=== PATIENT | female | born 1990 | race Asian ===

== ENCOUNTER 2019-04-04 13:49 | Emergency (ER) | payer MEDICAID ==
[2019-04-04 14:08] LABS: Influenza B Molecular POSITIVE (Negative)
[2019-04-04 14:31] VITALS: BP 112/77
--- NOTE | 2019-04-04 14:51 | ED ---
Influenza-Like Illness - HPI Summary HPI Summary: This patient is a 28-year-old 11 week female presenting to the ED with influenza-like symptoms. Patient states she has had a fever at home of approximately 100.5, sweats and chills as well as cough and congestion. She states when she has her cough, she is also endorsing some bilateral ear pain. She denies any nausea, vomiting, diarrhea. She denies any abdominal pain. She states she is otherwise healthy and takes no medications. Patient has a cough, but this is without production. - History of Current Complaint Chief Complaint: EDFluSymptoms Time Seen by Provider: 04/04/19 14:09 Hx Obtained From: Patient Onset/Duration: Sudden Onset Severity: Moderate Associated Signs & Symptoms: Fever, T Max, F/C, Myalgia, Cough, Sore Throat Related Hx: Possible Flu/Infectious Exposure - Allergy/Home Medications Allergies/Adverse Reactions: Allergies Allergy/AdvReac Type Severity Reaction Status Date / Time No Known Allergies Allergy Verified 04/04/19 13:54 PMH/Surg Hx/FS Hx/Imm Hx Previously Healthy: Yes - Immunization History Hx Pertussis Vaccination: No Immunizations Up to Date: Yes Infectious Disease History: No Infectious Disease History: Denies: Traveled Outside the [place] in Last 30 Days - Social History Occupation: Student Lives: With Family Alcohol Use: None Hx Substance Use: No Substance Use Type: Reports: None Hx Tobacco Use: No Smoking Status (MU): Never Smoked Tobacco Review of Systems Negative: Fever, Chills, Fatigue, Skin Diaphoresis Positive: Sore Throat, Ear Ache, Nasal Discharge Negative: Palpitations, Chest Pain Positive: Cough. Negative: Shortness Of Breath Negative: Abdominal Pain, Vomiting, Diarrhea, Nausea Genitourinary: Negative Positive: no symptoms reported, see HPI Negative: Arthralgia, Myalgia Neurological: Negative All Other Systems Reviewed And Are Negative: Yes Physical Exam Triage Information Reviewed: Yes Vital Signs On Initial Exam: Initial Vitals Temp Pulse Resp BP Pulse Ox 99.9 F 89 19 113/81 100 04/04/19 13:51 04/04/19 13:51 04/04/19 13:51 04/04/19 13:51 04/04/19 13:51 Vital Signs Reviewed: Yes Appearance: Positive: Well-Appearing, Well-Nourished Skin: Positive: Warm, Skin Color Reflects Adequate Perfusion Head/Face: Positive: Normal Head/Face Inspection Eyes: Positive: EOMI, GARRY, Conjunctiva Clear ENT: Positive: Nasal congestion, Nasal drainage, Sinus tenderness. Negative: Tonsillar swelling, Tonsillar exudate, Hoarse voice, Dental tenderness Neck: Positive: Supple, No Lymphadenopathy Respiratory/Lung Sounds: Positive: Clear to Auscultation, Breath Sounds Present Cardiovascular: Positive: RRR, Pulses are Symmetrical in both Upper and Lower Extremities Musculoskeletal: Positive: Strength/ROM Intact Neurological: Positive: Speech Normal Psychiatric: Positive: Affect/Mood Appropriate AVPU Assessment: Alert Procedures - Sedation Patient Received Moderate/Deep Sedation with Procedure: No Diagnostics - Vital Signs Vital Signs Temp Pulse Resp BP Pulse Ox 04/04/19 14:30 100.4 F 97 19 112/77 99 04/04/19 13:51 99.9 F 89 19 113/81 100 - Laboratory Lab Results: Lab Results 04/04/19 Range/Units 13:55 Influenza A (Rapid) Not Reportable Influenza B (Rapid) Positive A (Negative) Lab Statement: Any lab studies that have been ordered have been reviewed, and results considered in the medical decision making process. Flu Symptom Course/Dx - Course Course Of Treatment: Patient's evaluated for influenza-like symptoms. On arrival into the ED, patient's temp is 99.9, heart rate 89. Patient appears well nondiaphoretic and nontoxic appearing. Lungs CTA, RRR. No abdominal tenderness throughout. No pharyngeal erythema. No cervical LAD or maxillary sinus tenderness. Patient has influenza B-positive. She will be treated with Tamiflu 75 mg twice a day 5 days per protocol. - Diagnoses Differential Diagnosis/HQI/PQRI: Positive: Influenza, Upper Respiratory Infection Provider Diagnoses: Influenza B Discharge ED - Sign-Out/Discharge Documenting (check all that apply): Patient Departure - Discharge Plan Condition: Stable Disposition: HOME Prescriptions: Oseltamivir CAP* [Tamiflu CAP*] 75 mg PO BID #10 cap Patient Education Materials: Influenza (ED) Forms: *School Release Referrals: No Primary Care Phys,NOPCP [Primary Care Provider] - Additional Instructions: Tylenol 650mg four times daily Tamiflu twice daliy for 5 days - you can start this medication immediately Out of classes/work for 4 days you are able to return on Friday Note is given for work Robitussin over the counter for any cough Drink plenty of fluids Rest as much as possible Humidifier in the home may help Follow up with OBGYN - Billing Disposition and Condition Condition: STABLE Disposition: Home
== END 2019-04-04 14:41 | disposition home or self-care (01) ==
LOC: ED 13:49
DX: O26.891 Other specified pregnancy related conditions, first trimester (principal); J10.1 Influenza due to other identified influenza virus with other respiratory manifestations; Z3A.11 11 weeks gestation of pregnancy
CPT/HCPCS: 99282

== ENCOUNTER 2019-10-25 01:03 | Inpatient (IN) ==
[2019-10-25] MEDS ORDERED: Lactated Ringers 1000 ml BAG 1,000 ML IV ONE ×2 (05:40→09:58)
[2019-10-25] MEDS ORDERED: Lactated Ringers 1000 ml BAG 1,000 ML IV SCH ×3 (06:00→19:00)
[2019-10-25 06:20] LABS: ABS Lymphocytes 1.3 10^3/ul (1.0-4.8); ABS Monocytes 0.6 10^3/ul (0-0.8); ABS Neutrophils 7.7 10^3/ul (1.5-7.7); Eosinophil % 0.1 %; Hematocrit 39 % (35-47); Hemoglobin 13.7 g/dL (12.0-16.0); Lymphocyte % 13.4 %; Mean Corpuscular HGB Conc 35 g/dL (31-36); Mean Corpuscular Hemoglobin 35 pg (27-31); Mean Corpuscular Volume 100 fL (80-97); Mean Platelet Volume 9.1 fL (7.4-10.4); Platelet Count 169 10^3/uL (150-450); Red Blood Count 3.88 10^6 /uL (3.70-4.87); Red Cell Distribution Width 14 % (10-15); White Blood Count 9.5 10^3/uL (3.5-10.8)
[2019-10-25 08:21] LABS: Urine Benzodiazepine Screen None Detected (None Detect); Urine Cannabinoids Screen None Detected (None Detect); Urine Opiates Screen None Detected (None Detect)
[2019-10-25] MEDS ORDERED: OBEPIDURAL 250 ML EPIDURAL ONE (08:46)
[2019-10-25] MEDS ORDERED: Sodium Citrate/Citric Acid LIQ 15 ML UDC PO PRN (09:58)
[2019-10-25] MEDS ORDERED: Lactated Ringers 500 ml BAG 500 ML IV PRN (09:58)
[2019-10-25] MEDS ORDERED: EPHEDrine (Pressors) 50 MG/ML VIAL IV PUSH PRN ×2 (09:58)
[2019-10-25] MEDS ORDERED: Phenylephrine 40 mcg/mL 10mL (400mcg) SYRINGE IV PUSH PRN ×2 (09:58)
[2019-10-25] MEDS ORDERED: OBEPIDURAL 250 ML EPIDURAL SCH (10:00)
[2019-10-25] MEDS ORDERED: Oxytocin in LR 20 UNITS/1,000 ML BAG IVPB SCH ×2 (12:00→19:00)
[2019-10-25] MEDS ORDERED: Dibucaine 1% OINT 28.35 GM TUBE PR PRN (18:26)
[2019-10-25] MEDS ORDERED: Glycerin ADULT 2.4 gm SUPP PR PRN (18:26)
[2019-10-25] MEDS ORDERED: Witch Hazel PAD JAR TOPICAL PRN (18:26)
[2019-10-25] MEDS ORDERED: Lidocaine 1% VIAL 10 MG/ML VIAL ONE (20:51)
[2019-10-26 06:52] LABS: ABS Lymphocytes 1.9 10^3/ul (1.0-4.8); ABS Monocytes 0.8 10^3/ul (0-0.8); ABS Neutrophils 11.3 10^3/ul (1.5-7.7); Eosinophil % 0.2 %; Hematocrit 30 % (35-47); Hemoglobin 10.4 g/dL (12.0-16.0); Lymphocyte % 13.4 %; Mean Corpuscular HGB Conc 35 g/dL (31-36); Mean Corpuscular Hemoglobin 35 pg (27-31); Mean Corpuscular Volume 100 fL (80-97); Mean Platelet Volume 8.9 fL (7.4-10.4); Platelet Count 131 10^3/uL (150-450); Red Blood Count 2.96 10^6 /uL (3.70-4.87); Red Cell Distribution Width 14 % (10-15)
[2019-10-27 07:47] VITALS: BP 90/60
== END 2019-10-27 12:55 | disposition home or self-care (01) | DRG 560 ==
LOC: MCHOBOUT 01:03 → MCHOB 05:29
PROVIDERS: ADMIT Midwife; ATTEND Midwife

== ENCOUNTER 2021-08-18 00:51 | Inpatient (IN) ==
[2021-08-18] MEDS ORDERED: Lactated Ringers 1000 ml BAG 1,000 ML IV ONE ×2 (01:28→03:08)
[2021-08-18 02:10] LABS: ABS Lymphocytes 1.7 10^3/ul (1.0-4.8); ABS Monocytes 0.7 10^3/ul (0-0.8); ABS Neutrophils 8.4 10^3/ul (1.5-7.7); Eosinophil % 0.4 %; Hematocrit 39 % (35-47); Hemoglobin 13.5 g/dL (12.0-16.0); Lymphocyte % 15.3 %; Mean Corpuscular HGB Conc 34 g/dL (31-36); Mean Corpuscular Hemoglobin 35 pg (27-31); Mean Corpuscular Volume 102 fL (80-97); Mean Platelet Volume 8.4 fL (7.4-10.4); Nucleated Red Blood Cells % 0.2; Platelet Count 191 10^3/uL (150-450); Red Blood Count 3.88 10^6 /uL (3.70-4.87); Red Cell Distribution Width 14 % (10-15); White Blood Count 10.8 10^3/uL (3.5-10.8)
[2021-08-18] MEDS ORDERED: OBEPIDURAL (200 ML) 200 ML EPIDURAL ONE (02:15)
[2021-08-18] MEDS ORDERED: Lidocaine 1% w EPI 1:200,000 SDV 30 ML VIAL ONE (02:15)
[2021-08-18 02:33] LABS: Urine Benzodiazepine Screen None Detected (None Detect); Urine Cannabinoids Screen None Detected (None Detect); Urine Opiates Screen None Detected (None Detect)
[2021-08-18 03:08] LABS: HIV 4th Generation Nonreactive (Nonreactive)
[2021-08-18] MEDS ORDERED: Sodium Citrate/Citric Acid LIQ 15 ML UDC PO PRN (03:08)
[2021-08-18] MEDS ORDERED: Lactated Ringers 1000 ml BAG 500 ML IV PRN ×2 (03:08)
[2021-08-18] MEDS ORDERED: Phenylephrine 40 mcg/mL 10mL (400mcg) SYRINGE IV PUSH PRN ×2 (03:08)
[2021-08-18 03:59] LABS: Urine Appearance Clear; Urine Bilirubin Negative (Negative); Urine Blood Negative (Negative); Urine Color Straw; Urine Glucose Negative (Negative); Urine Ketones Trace (Negative); Urine Nitrite Negative (Negative); Urine Protein Negative (Negative); Urine Specific Gravity 1.005 (1.002-1.030); Urine Urobilinogen Negative (Negative)
[2021-08-18] MEDS ORDERED: Lactated Ringers 1000 ml BAG 1,000 ML IV SCH ×2 (04:00→08:00)
[2021-08-18] MEDS ORDERED: OBEPIDURAL (200 ML) 200 ML EPIDURAL SCH (04:00)
[2021-08-18 05:44] LABS: Urine Benzodiazepine Screen None Detected (None Detect); Urine Cannabinoids Screen None Detected (None Detect); Urine Opiates Screen None Detected (None Detect)
[2021-08-18] MEDS ORDERED: Oxytocin in LR 20 UNITS/1,000 ML BAG IVPB ONE (06:14)
[2021-08-18] MEDS ORDERED: Witch Hazel PAD JAR TOPICAL PRN (07:09)
[2021-08-18] MEDS ORDERED: Oxytocin in LR 20 UNITS/1,000 ML BAG IVPB SCH (08:00)
[2021-08-18] MEDS: Dibucaine 1% OINT 28.35 GM TUBE PR PRN (08:24)
[2021-08-18] MEDS ORDERED: Lidocaine 1% MPF 5 ML VIAL ONE (10:29)
[2021-08-19 08:43] LABS: ABS Lymphocytes 1.8 10^3/ul (1.0-4.8); ABS Monocytes 0.5 10^3/ul (0-0.8); ABS Neutrophils 8.2 10^3/ul (1.5-7.7); Eosinophil % 0.4 %; Hematocrit 36 % (35-47); Hemoglobin 12.2 g/dL (12.0-16.0); Lymphocyte % 17.3 %; Mean Corpuscular HGB Conc 34 g/dL (31-36); Mean Corpuscular Hemoglobin 34 pg (27-31); Mean Corpuscular Volume 102 fL (80-97); Mean Platelet Volume 8.4 fL (7.4-10.4); Nucleated Red Blood Cells % 0.2; Platelet Count 164 10^3/uL (150-450); Red Blood Count 3.55 10^6 /uL (3.70-4.87); Red Cell Distribution Width 15 % (10-15); White Blood Count 10.6 10^3/uL (3.5-10.8)
[2021-08-20 08:03] VITALS: BP 90/59
[2021-08-20] MEDS: Dibucaine 1% OINT 28.35 GM TUBE PR PRN (12:22)
[2021-08-20 12:24] LABS: Varicella IgG Antibody Index 1.9; Varicella-Zoster IgG Antibody Positive
[2021-08-21 12:30] LABS: Hb A 97.5 % (95.8-98.0); Hb A2 2.5 % (2.0-3.3)
== END 2021-08-20 12:45 | disposition home or self-care (01) | DRG 560 ==
LOC: MCHOBOUT 00:51 → MCHOB 01:29
PROVIDERS: ADMIT Midwife; ATTEND Midwife